=== PATIENT | male | born 1955 | race Caucasian/White ===

== ENCOUNTER 2019-11-12 20:38 | Emergency (ER) | payer OTHER ==
[~2019-11-12] VITALS: Ht 177.8 cm; Wt 93.0 kg
[2019-11-12 20:41] VITALS: BP 147/94
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
--- NOTE | 2019-11-12 21:08 | NUR ---
LATE ENTRY: ROOM SECURED UPON ARRIVAL OF PATIENT
--- NOTE | 2019-11-12 21:08 | NUR ---
PATIENT CANNOT RECALL MEDICATIONS AT THIS TIME. STATES "I WAS ON METIFORMIN BUT I BEAT THE DIABETES BY LOSING 40LBS"
--- NOTE | 2019-11-12 21:39 | NUR ---
PATIENT SLEEPING AT THIS TIME, RESPIRATIONS EVEN AND UNLABORED. SITTER AT DOOR
[2019-11-12 22:02] LABS: BASOPHILS # (AUTO) 0.08 x10^3/uL (0-0.1); BASOPHILS % (AUTO) 2 % (0-1); EOSINOPHILS # (AUTO) 0.24 x10^3/uL (0-0.4); EOSINOPHILS % (AUTO) 4 % (1-7); LYMPHOCYTES # (AUTO) 2.67 x10^3/uL (1-3.4); LYMPHOCYTES % (AUTO) 48 % (22-44); MD NO; MEAN CORPUSCULAR HEMOGLOBIN 31.5 pg (27.5-34.5); MEAN CORPUSCULAR HGB CONC 33.3 g/dL (33.2-36.2); MEAN CORPUSCULAR VOLUME 94.5 fL (81-97); MEAN PLATELET VOLUME 8.9 fL (7.4-10.4); MONOCYTES # (AUTO) 0.47 x10^3/uL (0.2-0.8); MONOCYTES % (AUTO) 9 % (2-9); NEUTROPHILS # (AUTO) 2.07 x10^3/uL (1.8-6.8); NEUTROPHILS % (AUTO) 37 % (42-75); PLATELET COUNT 158 x10^3/uL (130-400); RED BLOOD COUNT 4.27 x10^6/uL (4.38-5.82); RED CELL DISTRIBUTION WIDTH 15.4 % (9.4-14.8)
[2019-11-12 22:13] LABS: ALBUMIN 3.1 g/dL (3.4-5.0); ANION GAP 6 mmol/L (5-15); CALCIUM 8.1 mg/dL (8.5-10.1); CHLORIDE 109 mmol/L (98-107)
[2019-11-12 22:15] LABS: ALANINE AMINOTRANSFERASE 24 U/L (12-78); ALKALINE PHOSPHATASE 100 U/L (45-117); BILIRUBIN,TOTAL 0.4 mg/dL (0.2-1.0); SALICYLATE LEVEL < 1.7 mg/dL (2.8-20.0); TOTAL PROTEIN 7.4 g/dL (6.4-8.2)
--- NOTE | 2019-11-12 22:25 | NUR ---
PATIENT PROVIDED WITH SANDWICH, WATER, AND CHIPS ON FOAM PLATE FOR SAFETY
--- NOTE | 2019-11-12 23:04 | NUR ---
REMINDED PATIENT FOR THIRD TIME ABOUT NEED FOR URINE SAMPLE, PATIENT STATES HE IS UNABLE TO GO AT THIS TIME. NAD NOTED, SITTER AT DOOR.
--- NOTE | 2019-11-12 23:58 | NUR ---
PATIENT SLEEPING, RESPIRATIONS EVEN AND UNLABORED. NAD, SITTER AT DOOR. PATIENT GIVEN URINAL TO USE, STATES HE CANNOT URINATE AT THIS TIME
--- NOTE | 2019-11-13 00:37 | NUR ---
BREAK RN: WOKE PT. AND INSISTED PT. ATTEMPT TO PROVIDE URINE SAMPLE. PT. ATTEMPTING TO PROVIEDE SAMPLE AT THIS TIME.
--- NOTE | 2019-11-13 00:52 | NUR ---
GAVE PATIENT MORE WATER, PATIENT UP IN BED EATING AND DRINKING AT THISTIME. STATES HE WILL TRY TO PROVIDE URINE AFTER DRINKING ALL THE WATER.
[2019-11-13 01:27] LABS: AMPHETAMINE SCREEN, URINE Positive (Negative); BARBITURATE SCREEN, URINE Negative (Negative); BENZODIAZEPINE SCREEN, URINE Negative (Negative); CANNABINOID SCREEN, URINE Positive (Negative); COCAINE SCREEN, URINE Negative (Negative); METHADONE SCREEN, URINE Negative (Negative); OPIATE SCREEN, URINE Negative (Negative)
--- NOTE | 2019-11-13 01:41 | NUR ---
PATIENT RESTING ON GURNEY, RESPIRATIONS EVEN AND UNLABORED. SITTER AT DOOR.
--- NOTE | 2019-11-13 02:39 | NUR ---
PATIENT RESTING ON GURNEY, RESPIRATIONS EVEN AND UNLABORED. SITTER AT DOOR
--- NOTE | 2019-11-13 03:35 | NUR ---
PATIENT RESTING ON GURNEY, RESPIRATIONS EVEN AND UNLABORED. SITTER AT DOOR
--- NOTE | 2019-11-13 04:30 | NUR ---
BREATHALYZER COMPLETED.
--- NOTE | 2019-11-13 05:29 | NUR ---
PATIENT RESTING ON GURNEY, RESPIRATIONS EVEN AND UNLABORED. SITTER AT DOOR
--- NOTE | 2019-11-13 06:00 | NUR ---
BREATHALYZE COMPLETED. MD TO SEE TO REEVALUATE
--- NOTE | 2019-11-13 06:13 | NUR ---
TP RN: TELEPSYCH CONSULT INITIATED.
--- NOTE | 2019-11-13 06:13 | NUR ---
TELEPSYCH SET UP IN ROOM [id number]
[2019-11-13] MEDS ORDERED: ONDANSETRON ODT 4 MG ONE (06:17)
--- NOTE | 2019-11-13 06:19 | NUR ---
PATIENT MEDICATED PER [facility], TOLERATED WELL.
[2019-11-13] MEDS ORDERED: ONDANSETRON ODT 4 MG PO ONE (06:30)
--- NOTE | 2019-11-13 06:32 | NUR ---
REPORT GIVEN TO TELEPSYCH PHSYCHIATRIST.
--- NOTE | 2019-11-13 06:49 | NUR ---
REPORT GIVEN TO XOCHITL MORTENSEN. PLAN OF CARE DISCUSSED. TELEPSYCH IN PROGRESS
== END 2019-11-13 07:28 | disposition home or self-care (01) ==
LOC: ED 11-13 06:07
DX: F31.9 Bipolar disorder, unspecified (principal); F10.129 Alcohol abuse with intoxication, unspecified; Z72.9 Problem related to lifestyle, unspecified; Y90.9 Presence of alcohol in blood, level not specified
CPT/HCPCS: 36415; 80053; 80307; 85025; 99284; Q0162